=== PATIENT | female | born 1980 | race Two or more races ===

== ENCOUNTER 2016-09-12 13:02 | Emergency (ER) | payer MEDICAID ==
[~2016-09-12] VITALS: Ht 162.6 cm; Wt 120.2 kg
[~2016-09-12 13:02] MED LIST: AMOX500T3 PO; IBUP800T24 PO
[2016-09-12] MEDS ORDERED: LORazepam 2MG/ML-1ML VIAL IM ONE (13:45)
[2016-09-12 14:42] LABS: Basophils # (auto) 0 uL; Basophils % (auto) 0.2 % (0.0-2.0); DEFINITIVE VIEW TRANSMISSION; Eosinophils # (auto) 0.1 uL; Eosinophils % (auto) 1.1 % (0.0-7.0); Hematocrit 31.1 % (36.0-46.0); Hemoglobin 9.5 g/dL (12.2-16.2); Lymphocytes # (auto) 1.8 uL; Lymphocytes % (auto) 17.4 % (10.0-50.0); Mean Corpuscular Hemoglobin 18.8 pg (28.0-32.0); Mean Corpuscular Hgb Conc. 30.5 g/dL (32.0-36.0); Mean Corpuscular Volume 61.5 fL (80.0-100.0); Mean Platelet Volume 11.7 fL (7.4-10.4); Monocytes # (auto) 0.7 uL; Monocytes % (auto) 6.5 % (0.0-12.0); Neutrophils # (auto) 7.8 uL; Neutrophils % (auto) 74.8 % (37.0-80.0); Platelet Count (auto) 353 10^3/uL (140-450); SUSPECT VIEW TRANSMISSION; White Blood Cell 10.4 10^3/uL (4.4-10.8)
[2016-09-12 15:06] LABS: Albumin 3.2 g/dL (3.4-5.0); Anion Gap 10 (5-15); Aspartate Aminotransferase 11 U/L (15-37); Blood Urea Nitrogen 12 mg/dL (7-18); Calcium 8.3 mg/dL (8.5-10.1); Carbon Dioxide 24 mmol/L (21-32); Chloride 110 mmol/L (98-107); Glucose 101 mg/dL (74-106); Potassium 3.7 mmol/L (3.5-5.1); Sodium 144 mmol/L (136-145)
[2016-09-12 15:07] LABS: Red Cell Distribution Width 21.3 % (11.6-16.0)
[2016-09-12 15:08] LABS: BUN/Creatinine Ratio 18.8; GFR African American 136 mL/min; GFR Non-African American 112 mL/min
[2016-09-12 15:10] LABS: Alkaline Phosphatase 72 U/L (45-117); Bilirubin, Total 0.4 mg/dL (0.2-1.0)
[2016-09-12 16:15] VITALS: BP 123/76
[2016-09-12 17:08] LABS: Anisocytosis Moderate; Burr Cells FEW; Hypochromia Marked; Microcytosis Marked; Platelet Estimate Adequate
[2016-09-12 17:09] LABS: Poikilocytosis Slight
== END 2016-09-12 16:12 | disposition home or self-care (01) ==
LOC: ER 13:02
DX: F41.9 Anxiety disorder, unspecified (principal); D64.9 Anemia, unspecified; Z88.1 Allergy status to other antibiotic agents
CPT/HCPCS: 36415; 70450; 71020; 80053; 81002; 84484; 84702; 85025; 93005; 96372; 99285; J2060

== ENCOUNTER 2019-09-15 08:42 | Emergency (ER) | payer MEDICAID, OTHER ==
[~2019-09-15] VITALS: Ht 167.6 cm; Wt 108.9 kg
[2019-09-15 09:47] VITALS: BP 139/64
== END 2019-09-15 10:20 | disposition home or self-care (01) ==
LOC: ER 08:42
DX: H92.02 Otalgia, left ear (principal); R42 Dizziness and giddiness; R51 Headache; Z79.1 Long term (current) use of non-steroidal anti-inflammatories (NSAID); Z79.2 Long term (current) use of antibiotics